=== PATIENT | female | born 1990 | race Caucasian/White ===

== ENCOUNTER 2019-12-31 06:09 | Day surgery (SDC) | payer MEDICAID, SELFPAY ==
[2019-12-31] VITALS (8 sets, daily range): BP systolic 113–157; BP diastolic 66–109; PULSE 86–100; RESP 16–26; TEMP 36.1–36.8; O2SAT 95–98; BMI 25.0
[2019-12-31] MEDS: Lactated Ringers 1,000 ML 100 ML IV (06:56)
[2019-12-31 07:03] LABS: Internal QC Validated? YES +Cl - CLEAR BKGD; Pregnancy, Urine Negative Negative
--- NOTE | 2019-12-31 07:25 | RAD_ITS ---
STUDY: X-RAY - LEFT ANKLE REASON FOR EXAM: Female, 29 years old. FX REPAIR TECHNIQUE: 2 view(s) of the ankle. COMPARISON: None. FINDINGS: Intraoperative imaging provided for ORIF of the bilateral malleolar fractures. RAD/Ankle 2 Views IMPRESSION: Intraoperative imaging provided for ORIF of the bilateral malleolar fractures. Electronically Signed: Ryder Rabago, at 10:28 EDT , Service support ,
[2019-12-31] MEDS: Cefazolin 2 GM in 0.9% Normal Saline 100 ML IV (07:35)
--- NOTE | 2019-12-31 10:18 | DCINST_ITS ---
Discharge Diet: No Restrictions Discharge Activity: May Not Drive, May Not Shower, Use Walker, Use Crutches Weight Bearing Status: No weight bearing Keep extremity elevated above heart level: Left Leg Additional Activity Instructions:: 1. Keep dressing to left leg clean, dry, intact. Do not get dressing wet. Do not remove dressing. If get dressing wet, call office for further instructions. 2. Ice around left knee 30 minutes every hour while awake until follow-up appointment. 3. Elevate left foot above level of heart as much as possible until follow-up appointment. 4. Do not place weight on left foot. Do not walk or stand on left foot. Use crutches for assistance. 5. Keep weightbearing and walking activities to a minimum. The more you walk in the more you are upright, the more pain you will feel. 6. Begin taking doxycycline (antibiotic) and aspirin tomorrow, January 01, 2020. Both of these medications are twice a day. 7. Begin taking Percocet today, December 31, 2019 as instructed. 8. You can supplement pain medication with Tylenol in between dosages of Percocet. You should not take more than 3000 mg of Tylenol in 1 day. Each pill of Percocet contains 325 mg of Tylenol. Call your doctor if your incision/area has: Sudden Increased Bleeding, Increased Pain/ Swelling Call your doctor if you observe: Fever of 101 or Higher, Inability to have a bowel movement, Shortness of breath, Chest pain, Increased palpitations (irregular heartbeat), Calf discomfort, Uncontrolled pain Cleanse incision/area with: Keep Dressing Clean & Dry Allergies/Adverse Reactions: Allergies No Known Allergies Allergy (Verified 12/29/19 11:35) Medications to take at Discharge MedroxyPROGESTERone [Depo-Provera] 150 mg IM .[id number] 12/29/19 Oxycodone HCl/Acetaminophen [Percocet 5-325 mg Tablet] 1 - 2 ea PO Q6H PRN 12/29/19 Primary Care Physician: Care Physician,No Primary [Primary Care Provider] - Test Results: Test results from this visit will be discussed in further detail at your follow- up appointment, if applicable. Please Follow Up With: Arya Campos DPM When: on 01/08/2020 as previously scheduled Proposed Discharge Date: 12/31/19
--- NOTE | 2019-12-31 10:22 | OP.PCM_ITS ---
Problem List (1) Closed trimalleolar fracture of left ankle Status: Acute Qualifiers: Encounter type: initial encounter Qualified Code(s): S82.852A - Displaced trimalleolar fracture of left lower leg, initial encounter for closed fracture Report of Operation Date of Procedure: 12/31/19 Pre-Operative Diagnosis: 1. Left ankle trimalleolar fracture, closed. 2. Left ankle joint dislocation Post-Operative Diagnosis: Same as preoperative Surgery/Procedure Performed:: 1. Open reduction with internal fixation of the left ankle trimalleolar fracture. 2. Left ankle joint reduction Description of Surgical Findings:: Consistent with diagnosis. Reduction of deformities achieved and held with internal fixation. Posterior malleolus fracture was minimal and did not articulate with more than 25% of the articular surface of the ankle joint, thus internal fixation was not needed. Furthermore, it was not dislocated. The hook and cotton test were performed, testing the syndesmosis, and the syndesmosis was deemed intact. residential solar sales consultant: Shagufta Hernandez Type of Anesthesia:: General/Regional - With a popliteal and saphenous block to the left lower extremity given preoperatively Special Medications: 2 g of Ancef given preoperatively Specimen's removed: None Drains: None Estimated Blood Loss (mL): 10 Description of Procedure: Anesthesia: Is general with a popliteal and saphenous block to the left lower extremity. Hemostasis: Pneumatic thigh tourniquet placed at the level of left thigh at 300 mmHg for 120 minutes. Estimated blood loss is 10 mL Materials: #1. Is a Ekaterina 4 hole distal lateral fibula plate. 2. Ekaterina Asnis 4.0 x 40 mm partially-threaded screw. 3. [place] 3.5 x 12 mm locking screw. 4. Ekaterina 3.5 x 14 mm locking screw. 5. Ekaterina 3.5 x 16 mm locking screw x2. 6. [place] 3.5 x 10 mm nonlocking screw. 7. Ekaterina 3.5 x 12 mm nonlocking screw x2. 8. Ekaterina 3.5 x 16 mm nonlocking screw. 9. Size 0 Vicryl. 10. Size 2-0 Vicryl. 11. Size 3-0 Vicryl. 12. Size 3-0 nylon Injectables: None Complications: None Condition: Stable Indications: Patient is a 29-year-old female who suffered a left ankle injury on December 15, 2019. Patient states that she was filling water in her dog's bowl, and slipped on the water. Patient felt immediate pain in her left ankle and was unable to bear weight. Patient presented to the emergency department for further evaluation, where she was diagnosed with a left ankle fracture. Patient was then placed in a posterior splint and was instructed to follow-up. Patient initially saw me in December 18, 2019. The dressing was removed, revealing significant edema and loss of skin lines. The multilayer compressive dressing was reapplied. After reviewing the x-rays, I saw a trimalleolar fracture and was suspicious of a posterior malleolus fracture. I discussed with the patient that, due to the injury that was present, I recommended surgical intervention. Patient was agreeable to this. I did discuss with the patient that, due to the swelling, I would like to wait a period of a least 2 weeks to make sure the swelling decreases. In the meantime, a CT scan was ordered for preoperative planning. This showed the posterior malleolus fracture that was nondisplaced and that did not articulate with 25% or more of the ankle joint surface. The CT scan also showed a comminuted fibular fracture. I subsequently saw the patient back in my office on December 24 for an edema check. Reduction in edema was noted. I did go over the CT scan with the patient as well. Preoperative blood work and testing was ordered for the patient as well. Once again, I discussed the surgical intervention, which would include an open reduction with internal fixation of the left ankle trimalleolar fracture. The risks, benefits, possible outcomes, possible complications of the procedure were discussed with the patient. These included but not limited to delayed or nonhealing wounds, delayed or nonhealing bone, DVT, infection, decreased function of limb, loss of limb, loss of life. All the patient's questions were answered to her satisfaction and all of her concerns were addressed. No guarantees were made as to the outcome of the procedure. Patient displayed verbal understanding to all written and oral instructions, and was agreeable to proceed with the procedure. Operative report: Before the patient was brought to the operating room, the risks, benefits, possible outcomes, possible complications of the procedure were discussed with the patient once again. These included but not limited to delayed or nonhealing wounds, delayed or nonhealing bone, DVT, infection, decreased function of limb, loss of limb, loss of life. All the patient's questions were answered to her satisfaction and all of her concerns were addressed. No guarantees were made as to the outcome of the procedure. Patient displayed verbal understanding to all aspects of the procedure, and consent was then signed by the patient. Before the patient was brought to the operating room, the anesthesiologist administered a popliteal block to the left lower extremity. Patient was then brought to the operating room and placed on the operating table in supine position. Anesthesia then to control the airway while general anesthesia was obtained. All pressure points were padded. Next, 10 mL of 0.5 to Marcaine plain was distributed in a proximal saphenous nerve block fashion in the area of the tibial tuberosity. At this time, a well-padded pneumatic thigh tourniquet was placed the level of the left thigh. The left foot, ankle, leg were then scrubbed, prepped, draped in the usual sterile manner. Attention was then directed to the lateral aspect of the fibula. At this time, radiograph evaluation was used to determine the distal tip of the lateral malleolus, level of the fracture, and the lateral aspect of the distal one third of the fibular shaft. These were then marked on the patient. Attention was then directed to the medial aspect of the medial malleolus. The distal tip of the medial malleolus was palpated and marked along with the level of the fracture. These were confirmed upon radiographic evaluation. At this time, the left foot, ankle, leg were then elevated and exsanguinated via Esmarch and inflation pneumatic thigh tourniquet was performed to 300 mmHg. Attention was then directed back to the lateral aspect of the fibula. At this time, #15 blade was used to perform a linear longitudinal incision starting at the distal tip of the lateral malleolus extending distally to the lateral aspect of the distal one third of the fibular shaft. This incision was deepened utilizing sharp and blunt dissection. Care was taken to retract all vital neural and vascular structures. All bleeders were cauterized and ligated as necessary. Next, a periosteal incision was made in line with the original skin incision. The periosteal and capsular structures were then reflected anteriorly and posteriorly, thus exposing the fractured fibula at the operative site. This time, the fibula was noted to be comminuted with multiple pieces. The fractures were then reduced and held via temporary fixation. Radiograph evaluation was then performed. The fibular fracture was noted to be reduced from preoperative assessment. The fibula was noted to be out to length at this time. Next, the [place] 3.5 x 16 mm nonlocking screw was placed in standard AO fixation as perpendicular to the main fracture line as possible. This was placed in a anterior proximal to posterior distal fashion. Of note during insertion of the screw was the adequate compression of the fracture fragments. Furthermore, no shifting of any of the fragments occurred during insertion of the screw. The temporary fixation was held in the pieces where the comminution was noted. At this time, the Ekaterina 4 hole fibular plate was placed over the lateral aspect of the fibula and held via temporary fixation. Positioning of this plate was confirmed upon radiographic evaluation. Once confirmed, this was held via a mixture of nonlocking and locking screws to the lateral aspect of the fibula. Of note during insertion of the screws was the adequate compression of the plate to the bone. Furthermore, no shifting of any of the fragments occurred during insertion of the screws. Once her screws were fully inserted, all temporary fixation was then removed. Radiographic evaluation was then performed. The fibula was noted to be out to length at this time. The plate along with the interfragmentary screw was noted to hold the fractures of the fibula in the corrected reduced position. At this time, live radiographic evaluation was used to assess the syndesmosis via the hook and cotton test. The syndesmosis was deemed intact with no evidence of widening noted. No evidence of instability was noted at the syndesmosis. Attention was then directed to the medial aspect of the left ankle joint near the medial malleolus. At this time, the K wire for the [place] 4.0 Asnis screw was inserted under live radiograph evaluation from the distal tip of the medial malleolus extending proximally into the medullary canal of the tibia. Multiple radiographic views were performed and the K wire was noted to be well contained within the tibia. At this time, a Ekaterina 4.0 x 40 mm Asnis screw was inserted into the tibia in standard fashion. Of note there insertion of the screw was adequate compression of the fracture fragments. Furthermore, no shifting any of the fragments occurred during insertion of the screw. Once the screw was fully inserted, all temporary fixation was then removed. Radiograph evaluation was then performed. The screw was noted to hold the medial malleolus in the correct the reduced position. It was determined this time the 1 screw would be used due to the non-displacement of the fracture of the medial malleolus that was noted upon CT scan. At this time, multiple radiographic views and live radiograph evaluation was used to assess the posterior malleolus fracture. Once again, it was deemed smaller than 25% of the articular surface of the ankle joint and was noted to be nondisplaced. It was determined this time that the posterior malleolar fracture did not need internal fixation. At this time, final radiographs were performed. The fibula was noted to be out to length and held in the corrected reduced position. The ankle joint mortise was noted to be intact. The medial malleolus fracture was noted to be reduced from preoperative assessment. The hook and cotton test were performed once again and the syndesmosis was deemed intact with no evidence of instability. The lateral surgical site was then irrigated copious amounts normal sterile saline. The periosteal capsular structures were reapproximated and coapted utilizing size 0 Vicryl. The subcutaneous tissue was reapproximated and coapted utilizing size 2-0 Vicryl and 3-0 Vicryl. The skin was reapproximated and coapted utilizing size 3-0 nylon in a simple interrupted horizontal mattress fashion. The subcutaneous tissue of the surgical site on the medial aspect of left ankle was reapproximated coapted utilizing size 3-0 Vicryl. The skin was reapproximated coapted utilizing 3-0 nylon in a simple interrupted horizontal mattress fashion. At this time, the pneumatic thigh tourniquet was then released and a prompt hyperemic response noted to the entirety of the left lower extremity. Each surgical site was then dressed with Betadine soaked gauze, and a dry sterile dressing consisting of 4 x 4 gauze, ABD pads, wrapped with Kerlix. The left foot and ankle were then wrapped with an Nathaniel bandage. Next, a stockinette was placed over the left lower extremity. Cast padding was wrapped from the metatarsal heads extending proximally to the level just distal to the tibial tuberosity. A posterior splint was fashioned to the left lower extremity and was adhered to the left lower extremity utilizing Nathaniel bandages. Neurovascular status was assessed at the end of the application and deemed intact to the left lower extremity. The patient tolerated the anesthesia of the procedure well and was transported to the PACU with vital signs stable and neurovascular status intact to left lower extremity. After period of postoperative monitoring, patient will be discharged home with written and oral instructions for wound care and follow-up. The marketing assistant retail division, the nurse practitioner, was utilized throughout the entire procedure. She helped with patient positioning, holding of limb, holding of retractors. She helped with exposure throughout. She helped with bandage application and cast application. Without the marketing assistant retail division, surgical time would have been increased and surgical outcome could have been less optimal. - Complications None - Admit VTE Documentation VTE Present on Admission: No VTE Mechan Device Prophylaxis: SCD's VTE Pharm Prophylaxis ordered?: Yes
--- NOTE | 2019-12-31 10:50 | RAD_ITS ---
STUDY: X-RAY - LEFT ANKLE REASON FOR EXAM: Female, 29 years old. POST OP TECHNIQUE: 3 view(s) of the ankle. COMPARISON: Comparison is made with prior imaging done earlier in the day. FINDINGS: The patient is status post open reduction internal fixation of the distal fibular fracture utilizing sideplate and screw fixation device. A metallic screw is seen transfixing the medial malleolus. There is good alignment. Normal tibiotalar articulation and ankle mortise. Normal visualized talus and calcaneus. The visualized subtalar, talonavicular, calcaneocuboid and tarsal articulations are normal. Postoperative soft tissue changes. RAD/Ankle min 3 Views IMPRESSION: Status post ORIF of the distal fibula and medial malleolar fractures. The alignment. Postoperative soft tissue changes. Electronically Signed: Ryder Rabago, at 12:46 EDT , Service support ,
[2019-12-31] MEDS: HYDROcodone Bitartrate/Apap 5/325 Tablet PO (12:17)
== END 2019-12-31 12:32 | disposition home or self-care (01) ==
LOC: SDC 06:11 → AC 06:23 → ACINP 10:39 → AC 10:42
PROVIDERS: Anesthesiology; Referring Provider Podiatrist Foot & Ankle Surgery; Visit Provider Podiatrist Foot & Ankle Surgery
DX: S82.852A Displaced trimalleolar fracture of left lower leg, initial encounter for closed fracture (principal); W01.0XXA Fall on same level from slipping, tripping and stumbling without subsequent striking against object, initial encounter; Y93.89 Activity, other specified; Y92.9 Unspecified place or not applicable; Z11.59 Encounter for screening for other viral diseases; G25.81 Restless legs syndrome; Z79.899 Other long term (current) drug therapy; Z79.82 Long term (current) use of aspirin; F17.210 Nicotine dependence, cigarettes, uncomplicated
CPT/HCPCS: 01480; 27822; 64445; 73600; 73610; 76000; 81025; 87635; C1713; G2023; J7120; J2405; U0003

== ENCOUNTER 2021-05-19 08:36 | Outpatient (RCR) | payer MEDICAID, SELFPAY ==
[2021-05-19 09:00] VITALS: TEMP 36.1
--- NOTE | 2021-05-19 12:30 | PCM.WC.HP ---
History of Present Illness Date of Service: 05/19/21 Chief Complaint: dog bite left calf History of Wound: [facility] for evaluation of a dog bite of the left calf. She has a medical history significant for a previous left ankle trimalleolar fracture (closed) with left ankle joint dislocation s/p ORIF (12/2019), tobacco use, and a history of alcohol and marijuana use. She is nondiabetic. Approximately 3-4 weeks ago, she was bit by her boyfriend's pit bull while trying to separate it from another dog. She presented to the emergency room for evaluation, and was given Augmentin and a tetanus shot, and loose sutures were placed. The patient believes 5 sutures were placed in the left calf. An x-ray of the left tibia and fibula was unremarkable. She followed up at [facility] physicians, and sutures were not removed due to concern for wound dehiscence. She has been cleansing her wound with soap and water in the shower, rinsing it with hydrogen peroxide, and covering it with a large Band-Aid. She reports some periwound erythema and tenderness. She denies any increased warmth or rash of the periwound area. She reports yellow drainage from the wound. The patient denies fever, chills, general malaise, or poor appetite. Prior to this incident, the patient was not established with a primary care provider. She has not had any recent blood work completed. [facility] Medical History Cellulitis of left lower leg Dog bite of calf Open bite, left lower leg, sequela Tobacco use Home Medications medroxyprogesterone 150 mg IM .[id number] 12/29/19 [History Last Taken Unknown] collagenase clostridium histo. [Santyl] 1 applic TOPICAL DAILY #30 g 05/19/21 [Rx Last Taken Unknown] sulfamethoxazole-trimethoprim [Bactrim DS] 1 tab PO Q12H #10 tab 05/19/21 [Rx Last Taken Unknown] Allergy/AdvReac Type Severity Reaction Status Date / Time No Known Allergies Allergy Verified 12/29/19 11:35 Social History Smoking Status: Current every day smoker ROS Constitutional Constitutional: Denies chills, fever(s) or night sweats Eyes Eyes: Denies change in vision or double vision ENT HEENT: Denies lip swelling or tongue swelling Cardiovascular Cardiovascular: Denies chest pain or palpitations Respiratory/Chest Respiratory/Chest: Denies cough, shortness of breath at rest, shortness of breath with exertion or wheezing Gastrointestinal Gastrointestinal: Denies diarrhea, nausea or vomiting Genitourinary Genitourinary: Denies dysuria or hematuria Musculoskeletal Musculoskeletal: Reports extremity pain; Denies abnormal gait, muscle weakness, numbness or tingling Integumentary Integumentary: Reports wounds; Denies rash Neurologic Neurologic: Denies abnormal gait, abnormal speech or focal weakness Endocrine Endocrinology: Denies cold intolerance, heat intolerance, polydipsia or polyuria Hematologic/Lymphatic Hematologic/Lymphatic: Denies easy bleeding or easy bruising Vital Signs Vital Signs Vital Signs: 05/19/21 09:00 Temperature 97.0 F L Temperature Source Temporal Blood Pressure Source Monitor Blood Pressure Position Sitting Blood Pressure Location Left Arm Physical Exam Const alert and healthy appearing General Appearance: cooperative, well kempt and anxious Orientation / Consciousness: awake HEENT Head and Scalp: normocephalic and atraumatic Eyes EOMs intact bilaterally Neck supple and no JVD Resp normal respiratory effort, normal air movement and no use of accessory muscles Auscultation: clear to auscultation bilaterally; Negative for crackles, rales, rhonchi or wheezes Cardio regular rate and regular rhythm Peripheral Pulses: dorsalis pedis pulses present left 2+ GI normal to inspection, nondistended, normoactive bowel sounds Extremity normal capillary refill, no joint enlargement and no pedal edema General Extremity: calf tenderness and edema left lower extremity (Calf) mild; Negative for clubbing or cyanosis Skin Wounds: wounds noted No malodorous Wound Narrative: Left calf wound with subcutaneous layer exposed. [address] in place. No tunneling, undermining, or probing to bone. There is moderate periwound erythema and tenderness. No periwound warmth. Large amount of slough and devitalized tissue present. No purulent or malodorous drainage. Neuro oriented x3, moves all extremities and no focal motor deficits Psych mental status grossly normal, cooperative and affect normal Debridement Note Debridement Note Wound debrided: Left calf Laterality: Left Type of Debridement: Excisional debridement Anesthesia Used: 5% Lidocaine Gel and Cetacaine Depth: in the subcutaneous layer Percentage of wound debrided: 100 Instrument Used: 3mm curette Tissue Removed: Slough and devitalized tissue Severity: Fat Layer Exposed Amount of bleeding with debridement: Mild Bleeding Controlled with: Pressure Patient tolerated procedure: Patient did not tolerate procedure well Post-Debridement Measurements and Additional Note: Post-Debridement Measurements/Treatment - Nurse 1 - General Ulcer Assessment Start: 05/19/21 09:00 Freq: Status: Active Protocol: HUDSON Activity Type Activity Date Activity User E-Sign Co-Sign Detail Recorded Client Recorded Date Recorded By Document 05/19/21 09:00 KEI [id number] 05/19/21 09:09 KR 05/19/21 09:00 WC - Today's Visit Information Type of service Initial Visit Arrival Mode Ambulatory Patient Identification Verified (Name & Yes ) Vital Signs Temperature (97.8 F-99.1 F) 97.0 F L Temperature Source Temporal Pulse Location Monitor Source Monitor Position Sitting Blood Pressure Location Left Arm History Since Last Visit- (Skip if this is Patient's initial visit) Have you changed medications since your No last visit? Any new allergies or adverse reactions No Had a fall/change in ADL's that may No increase risk of falls Signs or symptoms of abuse and/or No neglect since last visit Have you been in the hospital since your No last visit? Has dressing in place as prescribed No Has compression in place as prescribed N/A Has offloadiing in place as prescribed N/A Experienced any changes in pain level or No management Left Footwear Regular Shoe Right Footwear Regular Shoe Pain Scale: 0-10 Numeric Is Patient Pain Free? Yes - Nurse 1 - General Ulcer Measurement Start: 05/19/21 09:00 Freq: Status: Active Protocol: Activity Type Activity Date Activity User E-Sign Co-Sign Detail Recorded Client Recorded Date Recorded By Document 05/19/21 09:00 KEI [id number] 05/19/21 09:09 KR 05/19/21 09:00 Wound Center Nurse 1 #1 Left Calf -Current Size (cm) - Length 1 -Current Size (cm) - Width 0.6 -Current Size (cm) - Depth 0.4 -Total Square Cm 0.6 -Exudate Amt Small -Exudate Type Serosanguineous -Wound Margin Distinct, Outline Attached -Granulation Amt Medium (34-66%) -Granulation Quality Red -Necrosis Amt Medium (34-66%) -Necrotic Tissue Type Adherent Slough -Texture (Ann Marie-wound Skin Appearance) Assessed, Scarring -Moisture (Ann Marie-wound Skin Appearance) No Abnormality, Assessed -Color (Ann Marie-wound Skin Appearance) No Abnormality, Assessed -Temperature (Ann Marie-wound Skin No Abnormality Appearance) (Pt Warm) -Tenderness on Palpation (Ann Marie-wound No Skin Appearance) -Ulcer Cleansing Rinsed/ Irrigated with Saline -Foul Odor after Cleansing No -Anesthetic Used 5% Lidocaine Gel Left Calf (cm) 33.5 Left Ankle (cm) 22.5 WC - Nurse 3 - General Ulcer D/C NN Start: 05/19/21 09:00 Freq: Status: Active Protocol: Activity Type Activity Date Activity User E-Sign Co-Sign Detail Recorded Client Recorded Date Recorded By Document 05/19/21 09:57 ARNULFO [id number] 05/19/21 09:58 ARNULFO 05/19/21 09:57 Wound Care Nurse 3 #1 Left Calf -Ulcer Cleansing Rinsed/ Irrigated with Saline -Foul Odor after Cleansing No -Negative Pressure Wound Therapy N/A -Primary Dressing Applied Aquacel AG 4x4 -Primary Dressing Covered/Secured with Dry Gauze, Secured with Tape -Aquacel AG 4x4 1 WC - Visit Discharge Discharge Condition Stable Transportation Private Auto Medication Reconcilliation completed & Yes provided to patient/care provider Clinical Summary of Care Provided Yes Charges/Coding Visit Charges Office Visits / Consults: 63095 OV L4 New Procedures Integumentary [id number]: [id number] Kassandra subq tissue 20 sq cm/< Assessment/Plan Assessment/Plan (1) Dog bite of calf: CODE(S): S81.859A - Open bite, unspecified lower leg, initial encounter; W54.0XXA - Bitten by dog, initial encounter QUALIFIERS: Encounter type: sequela Laterality: left Qualified Code(s): S81.852S - Open bite, left lower leg, sequela; W54.0XXS - Bitten by dog, sequela (2) Open bite, left lower leg, sequela: CODE(S): S81.852S - Open bite, left lower leg, sequela (3) Tobacco use: CODE(S): Z72.0 - Tobacco use (4) Cellulitis of left lower leg: CODE(S): L03.116 - Cellulitis of left lower limb PLAN: 5 simple interrupted sutures removed from the left calf wound. Debridement performed today in clinic as annotated above. Patient is extremely anxious and very sensitive to debridement today. Aquacel Ag applied to the left calf wound. At home wound-care instructions: A prescription for Santyl ointment has been sent to the pharmacy. Apply Santyl and a nickel thick layer to the wound, and cover with gauze. Change dressing once daily or more frequently as needed due to contamination. Wash wounds daily with antibacterial soap and water, rinse and dry thoroughly before each dressing change. Discontinue hydrogen peroxide. Compression: Double Tubigrip's applied to the left lower extremity. Wear these daily. May remove these at bedtime. Compression should be reapplied prior to getting out of bed in the morning. Off-loading: The patient was instructed to avoid pressure and friction on the affected areas. Reposition every 2 hours at minimum. Avoid prolonged standing and/or dangling of legs. When seated, feet should be elevated at chest level. Frequent ambulation is encouraged. Diet: Patient encouraged to increase protein intake while taking caution to avoid high carbohydrate and/or sugar intake. Smoking: The risks of smoking and benefits of smoking cessation were discussed with the patient today. The patient is encouraged to quit smoking. If smoking cessation aids are desired, the patient should contact their primary care provider to discuss appropriate options. Labs/cultures/imaging: Cultures ordered and collected today. Patient was empirically started on Bactrim DS 1 tab every 12 hours x5 days. Antibiotics will be adjusted as needed based on culture results. Routine baseline lab work ordered. Vascular studies deferred for the time being. Follow-up: Return to clinic in 2 weeks for re-evaluation. Return sooner or report to the emergency room should symptoms worsen, or new symptoms arise.
== END 2021-05-30 23:59 ==
LOC: WC 08:36
PROVIDERS: Visit Provider Nurse Practitioner Family
DX: S81.852A Open bite, left lower leg, initial encounter (principal); W54.0XXA Bitten by dog, initial encounter; F17.200 Nicotine dependence, unspecified, uncomplicated; L03.116 Cellulitis of left lower limb
CPT/HCPCS: 11042; 87070; 87075; 87077; 87186; 87205; 99213; G0463

== ENCOUNTER 2024-04-21 13:57 | Emergency (ER) | payer MEDICAID, SELFPAY ==
[2024-04-21 13:58] VITALS: BP 122/84; PULSE 90; RESP 16; TEMP 35.9; O2SAT 99; BMI 24.5
--- NOTE | 2024-04-21 16:20 | ED.VIS.DENTA ---
HPI History of Present Illness Chief Complaint: Dental Informant: patient Narrative Narrative: Patient presents to the ED for lower gum/mouth pain. She started 2 days ago. It is in her bottom gums diffusely. She states she also has some pain going and underneath her jaw and into her throat/anterior neck. Is having hard time eating because of the pain but can still drink. Denies any fever. Has not taken Tylenol or Profen with no relief of her symptoms. Denies associated fever. [place] any rash or skin changes. Does not take any medications and denies any recent medications. Does intermittently use tobacco but is not currently. Notes that she does get pain when she clenches her jaw but denies any focal tooth pain. Does not currently see a dentist. States she had something like this once before but it self resolved and she never had it looked out. No other complaints or concerns reported at this time. Denies any sick contacts at home. [facility] Medical History Cellulitis of left lower leg Tobacco use Open bite, left lower leg, sequela Dog bite of calf Home Medications ?Medication ?Instructions ?Recorded ?Last Taken ?Type medroxyprogesterone 150 mg/mL 150 mg IM .[id number] 12/29/19 Unknown History intramuscular syringe collagenase clostridium histo. 250 1 applic topical DAILY #30 grams 05/19/21 Unknown Rx unit/gram topical ointment (Santyl) sulfamethoxazole 800 1 tab PO Q12H #10 tabs 05/19/21 Unknown Rx mg-trimethoprim 160 mg tablet (Bactrim DS) MAGIC MOUTH WASH (BMX) 180 mL 5 ml buccal TID PRN PRN gum pain 04/21/24 Unknown Rx suspension #180 mL amoxicillin 875 mg-potassium 875 mg PO Q12H #20 TABLETS 04/21/24 Unknown Rx clavulanate 125 mg tablet chlorhexidine gluconate 0.12 % 15 ml buccal BID #120 mL 04/21/24 Unknown Rx mouthwash ibuprofen 600 mg tablet 600 mg PO Q6H PRN PRN pain #20 04/21/24 Unknown Rx TABLETS Allergy/AdvReac Type Severity Reaction Status Date / Time No Known Allergies Allergy Verified 04/21/24 13:58 Social History Smoking Status: Current every day smoker tobacco type: cigarettes ROS ROS ED Constitutional Constitutional ED: Denies chills or fever(s) ENT ENT ED: Reports other Details: Lower gum pain ; Denies rhinorrhea or sore throat Cardiovascular Cardiovascular: Denies chest pain Respiratory/Chest Respiratory/Chest: Denies cough or dyspnea Gastrointestinal Gastrointestinal: Denies nausea or vomiting Integumentary Denies rash Hematologic/Lymphatic Hematologic/Lymphatic: Denies easy bleeding or easy bruising EXAM Physical Exam Const Vital Signs: 04/21/24 13:58 Temperature 96.6 F L Temperature Source Temporal Pulse Rate 90 Respiratory Rate 16 Blood Pressure 122/84 H Blood Pressure Mean 96 Pulse Ox 99 Oxygen Delivery Method Room Air Positive well nourished and well developed General Appearance ED: well developed HEENT HEENT Narrative: Normocephalic atraumatic. Normal TMs bilaterally. Normal external ears. Some scattered dental decay and caries present. Patient does have some mild swelling and irritation of the gingiva of the lower jaw that is tender to palpation. Do not appreciate any lesions on the mucosal or buccal surfaces. No signs of dental abscess on exam. No focal tenderness of the teeth. Normal oropharynx. Eyes PERRL and EOMs intact bilaterally Neck supple Neck Narrative: Anterior cervical chain lymphadenopathy right greater than left present. Mildly tender. Normal phonation. General: normal visual inspection; Negative for submandibular swelling Chest Wall inspection of chest normal and palpation of chest normal Resp normal respiratory effort and clear to auscultation bilaterally Resp Narrative: No stridor Cardio regular rate and regular rhythm Neuro oriented x3 Sensorium / Orientation: alert Motor Exam: Negative for general weakness Psych mental status grossly normal Skin no rashes or lesions noted and no wounds MDM MDM MDM Narrative Medical decision making narrative: Patient is evaluated for 2 days of worsening lower abdominal pain. Differential includes aphthous ulcer, gingivitis, mucositis and viral illness. I do not see an obvious dental abscess. I do not see any lesions in the mouth. She does not have any abnormal bruising or other rash concerning for more systemic syndrome such as Blandon-Oscar syndrome/TENS. She denies any recent medications. Will give her lidocaine in the ER as well as Motrin. Will prescribe Magic mouthwash and [id number] course of antibiotics in case this is a developing bacterial infection. Patient agreeable this plan of care. Encouraged follow-up with a dentist and given her dental referral sheet. Counseled importance of tobacco cessation. She verbalized agreement to this plan. Discharged home in stable condition. Discharge Plan Triage Chief Complaint: Dental ED Provider: Contsanza Larson Dx/Rx/DC Orders Clinical Impression: Mucositis oral Instructions: Understanding Gingivitis, ED Dental Pain Prescriptions: New MAGIC MOUTH WASH (BMX) 180 mL suspension 5 ml buccal TID PRN PRN (Reason: gum pain ) Qty: 180 0RF Rx Instructions: diphenhydramine 12.5 mg/5 mL oral liquid 60 mL; aluminum-mag hydroxide-simethicone 400 mg-400 mg-40 mg/5 mL oral susp 60 mL; Lidocaine Viscous 2 % mucosal solution 60 mL; Per 180 mL amoxicillin-pot clavulanate 875-125 mg tablet 875 mg PO Q12H Qty: 20 0RF ibuprofen 600 mg tablet 600 mg PO Q6H PRN PRN (Reason: pain) Qty: 20 0RF chlorhexidine gluconate 0.12 % mouthwash 15 ml buccal BID Qty: 120 0RF No Action medroxyprogesterone 150 MG/ML syringe 150 mg IM .[id number] Santyl 250 unit/gram ointment 1 applic topical DAILY Qty: 30 2RF Rx Instructions: apply a nickel-thick layer to wound sulfamethoxazole-trimethoprim [Bactrim DS] 800-160 mg tablet 1 tab PO Q12H Qty: 10 0RF Primary Care Provider: Care Physician,No Primary Referrals: Care Physician,No Primary [Primary Care Provider] - Activity Restrictions/Additional Instructions: Please return to care progression worsening your symptoms. If you do not have improvement of your pain in the next 48 hours with the Magic mouth wash, ibuprofen and chlorhexidine please start taking antibiotics. If you improve with the other medication do not need to take the antibiotics. Please follow-up with a dentist. Continue to abstain from any tobacco use. Print Language: Sami Disposition Disposition: Home, Self Care
[2024-04-21] MEDS: Lidocaine 2% Viscous15 ML UDC 5 ML PO (16:22)
[2024-04-21] MEDS: Ibuprofen 600 MG Tablet PO (16:22)
--- NOTE | 2024-04-21 16:36 | ED.RN ---
pain improving with lidocaine
--- OUTSIDE RECORDS SUMMARY | 2024-04-21 17:14 | XMS RPT_ITS | CCD ---
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 Name Role Phone PHYSICIAN, NONE Primary Care Physician Unavailab Navarrete PT, Joann Unavailable Unavailable YENNY ROLON, DR MCGEE Attending Unavailab lang PHYSICIAN, NONE Primary Care Unavailable Idris Russell MD Primary Care Provider SILVIO CANADA Attending Unavailable IDRIS RUSSELL Primary Care Unavailable Allergies Allergy Classification Reported Allergen(s) Allergy Type Date of Onset Reaction(s) Facility (2 sources) Seasonal allergy; Translations: [SEASONAL ALLERGIES] Allergy to substance 4 Other: See Comments [facility] Medications Current Medications Medication Drug Class(es) Dates Sig (Normalized) Sig (Original) acetaminophen 500 mg oral tablet (2 sources) Start: 04-28-2021 acetaminophen 500 mg oral tablet Dose : 1,000 mg = 2 tab(s), Oral, TID, PRN pain or fever, 0 Refill(s) Start Date: 04/28/21 Status: Ordered Start: 08-11-2018 take 2 tablets by mo [facility] every six hours as needed acetaminophen (TYLENOL EXTRA STRENGTH) 500 mg tablet Take 2 tablets by mouth every 6 hours as needed for Pain. FOR PAIN. 60 tablet 1 08/11/2018 Active Comment on above: Take 2 tablets by mo [facility] every 6 hours as needed for Pain. FOR PAIN. amoxicillin 500 mg oral capsule (1 source) Penicillin-class Antibacterial Start: 02-21-2023 End: 03-03-2023 amoxicillin 500 mg oral capsule Dose : 500 mg = 1 cap(s), PO, TID, X 10 day(s), # 30 cap(s), 0 Refill(s), 03/03/23 10:26:00 AM EDT Start Date: 02/21/23 Stop Date: 03/03/23 Status: Ordered predniSONE 50 mg oral tablet (2 sources) Start: 02-21-2023 End: 02-28-2023 predniSONE 50 mg oral tablet Dose : 50 mg = 1 tab(s), PO, Daily, X 7 day(s), # 7 tab(s), 0 Refill(s), 02/28/23 10:26:00 AM EDT Start Date: 02/21/23 Stop Date: 02/28/23 Status: Ordered Start: 01-08-2022 End: 01-13-2022 predniSONE 20 mg oral tablet Dose : 40 mg = 2 tab(s), Oral, Daily, # 10 tab(s), 0 Refill(s), Exudative pharyngitis Start Date: 01/08/22 Stop Date: 01/13/22 Status: Ordered traMADol hydrochloride 50 mg oral tablet (1 source) Opioid Agonist Start: 02-21-2023 End: 02-24-2023 Ultram 50 mg oral tablet Dose : 50 mg = 1 tab(s), Oral, q12hr, X 3 day(s), # 6 tab(s), 0 Refill(s), 02/24/23 10:26:00 AM EDT, Pharyngitis, 56.8 Start Date: 02/21/23 Stop Date: 02/24/23 Status: Ordered Completed/Discontinued Medications Medication Drug Class(es) Dates Sig (Normalized) Sig (Original) acetaminophen 325 mg / HYDROcodone bitartrate 5 mg oral tablet (1 source) Opioid Agonist Start: 01-09-20 End: 01-12-20 take 1 tablet by mouth every six hours as needed for pain [place] 325- 5 mg oral tablet Dose = 1 tab(s), Oral, q6h, PRN as needed for pain, # 12 tab(s), 0 Refill(s), Exudative pharyngitis, 59 Start Date: 01/08/22 Stop Date: 01/11/22 Status: Ordered ibuprofen 600 mg oral tablet (1 source) Nonsteroidal Anti-inflammatory Drug Start: 08-07-19 take 1 tablet by mouth every six hours as needed ibuprofen (MOTRIN) 600 mg tablet Take 1 tablet by mouth every 6 hours as needed. FOR PAIN. 60 tablet 1 08/07/2018 Active Comment on above: Take 1 tablet by connie th every 6 hours as needed. FOR PAIN. 1 ml medroxyPROGESTERone acetate 150 mg/ml injection (1 source) Progestin Start: 10-04-19 medroxyPROGESTERone (DEPO-PROVERA) 150 mg/mL injection Inject 1 mL intramuscularly every 12 weeks. 1 mL 4 10/03/2020 Active Comment on above: Inject 1 mL intramus cularly every 12 weeks. medroxyPROGESTERone 150 mg/mL intramuscular suspension (1 source) Start: 04-25-20 inject 1 mL by intramuscular injection every three months medroxyPROGESTERone 150 mg/mL intramuscular suspension Dose : 150 mg = 1 mL, Intramuscular, q3mo, # 1 mL, 0 Refill(s) Start Date: 04/25/19 Status: Ordered Problems Active Problems Problem Classification Problem Date Documented Da te Episodic/Chronic Abdominal pain (4 sources) Abdominal pain; Translations: [Pain in female pelvis] Onset: 08-11-2015 09-20-2013 Episodic Anxiety disorders (1 source) Anxiety neurosis ; Translations: [Generalized anxiety disorder] Onset: 07-29-2015 07-29-2015 Chronic Contraceptive and procreative management (2 sources) Patient encounter status; Translations: [Encounter for other general counseling and advice on contraception] Onset: 10-15-2023 10-15-2023 Episodic Mood disorders (1 source) Depressive disorder; Translations: [Depression] Onset: 07-29-2015 06-26-2021 Chronic Other upper respiratory infections (2 sources) Acute pharyngitis; Translations: [Acute pharyngitis, unspecified] Onset: 02-21-2023 Episodic Ovarian cyst (1 source) Cyst of ovary 12-22-2013 Episodic Past or Other Problems Problem Classification Problem Date Documented Da te Episodic/Chronic Residual codes; unclassified (1 source) Tobacco use and exposure - finding; Translations: [Tobacco use] Onset: 07-29-2015 07-29-2015 Episodic Results Test Name Value Interpretation Reference Range Facility CNOVon 10-15-2023 CNOV Office Visit (OBGYWM ) VIRGILIO FOOTE ([id number]) 1990 F Date Time Provider Department 10/15/23 2:45 PM SILVIO CANADAWEveline During your visit today, we recorded the following information about you: Blood pressure Weight Last Period 110/64 55.3 kg 09/30/23 Silvio Canada APRN.CNM 10/15/2023 3:47 PM Signed CONTRACEPTION Virgilio Foote is a 32 year old who presents today for contraception. LMP 09/30/23 HPI: Dysmenorrhea Yes, dysmenorrhea. Pain starts the day before and lasts during menses. Will take 1 Ibuprofen and 2 tylenol and this helps suppress it some. Pain throughout the month. Pain with intercourse. Right teratoma with oophorectomy 12 years ago. Heavy menses No Irregular menses No SUBJECTIVE Sexually active: Yes, single current partner x 2 months Smoking Yes vaping with nicotine Last PAP 08/13/2018 Method of control: Depo Provera satisfactory, 2020 last injection Methods tried previously: oral contraceptives Patient currently interested in: Depo Provera Interested in in the next 3 years? No Date of last STD testing? unknown Relevant Past Medical History: Smoker OB History T3 L3 SAB1 IAB0 Ectopic0 Multiple0 Live Births0 PAST MEDICAL HISTORY Diagnosis Date Abdominal pain 07/01/2005 chronic Anxiety neurosis 07/29/2015 Chronic pelvic pain in female 08/11/2015 Closed fracture of left ankle Depression 07/29/[facility] Teratoma of right ovary 07/01/2011 [facility], per patient report Tobacco use 07/29/2015 PAST SURGICAL HISTORY Procedure Laterality Date ANKLE SURGERY HX Left DELIVERY ONLY 07/01/2006 , low transverse DELIVERY ONLY 07/01/2007 , low transverse DELIVERY ONLY 07/01/2009 , low transverse COLONOSCOP W/ OR W/O BRSH SPEC 09/07/2015 Colonoscopy (MAC) PAST SURGICAL HISTORY OF 07/01/2011 Right oopherectomy and appendix FAMILY HISTORY Problem Relation Age of Onset Seizures Mother None Father Breast Cancer Maternal Grandmother Ischemic Heart Disease Maternal Grandmother Diabetes Maternal Grandmother Breast Cancer Maternal cousin SOCIAL HISTORY Social History Tobacco Use Smoking status: Every Day Packs/day: 0.50 Years: 8.00 Additional pack years: 0.00 Total pack years: 4.00 Types: Cigarettes Smokeless tobacco: Never Substance Use Topics Alcohol use: No Drug use: No PAST SURGICAL HISTORY Procedure Laterality Date ANKLE SURGERY HX Left DELIVERY ONLY 07/01/2006 , low transverse DELIVERY ONLY 07/01/2007 , low transverse DELIVERY ONLY 07/01/2009 , low transverse COLONOSCOP W/ OR W/O BRSH SPEC 09/07/2015 Colonoscopy ([facility] [place]) PAST SURGICAL HISTORY OF 07/01/2011 Right oopherectomy and appendix Current Outpatient Medications Medication Sig medroxyPROGESTERone (DEPO-PROVERA) 150 mg/mL injection Inject 1 mL intramuscularly every 12 weeks. (Patient not taking: Reported on 10/15/2023) acetaminophen (TYLENOL EXTRA STRENGTH) 500 mg tablet Take 2 tablets by mouth every 6 hours as needed for Pain. FOR PAIN. (Patient not taking: Reported on 08/10/2019) ibuprofen (MOTRIN) 600 mg tablet Take 1 tablet by mouth every 6 hours as needed. FOR PAIN. (Patient not taking: Reported on 08/10/2019) No current facility-administered medications for this visit. Allergies As of Date: 10/15/2023 Allergen Noted Reaction SEASONAL ALLERGIES 11/16/2013 Other: See Comments Fully Assessed 10/15/2023 OBJECTIVE: General Appearance: Well appearing, alert, in no acute distress, well-hydrated, well nourished. Skin: Color normal, No edema Neck: Supple, no adenopathy; thyroid symmetric, normal size, no bruits ASSESSMENT/PLAN: 1. Pelvic pain in female - ICD9: 625.9, ICD10: R10.2 (primary diagnosis) - US FEMALE PELVIS TRANSVAG - Was scheduled for annual exam today but declined at this time due to daughter being present. Reviewed recommendation for US and vaginal testing prior to starting control due to her pain. She is agreeable and will return for visit. 2. control counseling - ICD9: V25.09, ICD10: Z30.09 -Would like Depo, will start after exam and results. Silvio Canada APRN.YAJAIRAM Allergies As of Date: 10/15/2023 Noted Allergy Reaction SEASONAL ALLERGIES 11/16/2013 14 - Other: See Comments Comments: Sneezing, itching eyes Date Reviewed: 10/15/2023 Reviewed by: Wander Grayson MA - Fully Assessed Primary Visit Diagnosis:Pelvic pain in female [R10.2] Other Visit Diagnosis: control counseling [Z30.09] Order(s): FEMALE PELVIS TRANSVAG [[id number]] Order #: [id number] FUTURE Prescriptions as of 10/15/2023 - medroxyPROGESTERone (DEPO-PROVERA) 150 mg/mL injection Inject 1 mL intramuscularly every 12 weeks. - acetaminophen (TYLE (more content not included)... Normal [facility] LABORATORYOrdered By: Twin Huerta on 02-21-2023 S. pyogenes DNA LATANYA+probe Ql (Throat) Negative (02/21/23 9:51 AM) Invalid Interpretation Code Negative AO Auto Urine SS S. pyogenes DNA LATANYA+probe Ql (Throat) Negative for Streptococcus pyogenes by PCR. Negative test results do not rule out other possible infections besides those caused by Group A Streptococcus. False Negatives may be obtained in the presence of NYQUIL (0.5% V/V)The Jacoby Group A Strep Assay is a real-time polymerase chain reaction (PCR) based qualitative in vitro diagnostic test for the direct detection of Streptococcus pyogenes (Group A Beta hemolytic Streptococcus) in throat swab specimens from patients with signs and symptoms of pharyngitis.The Jacoby Group A Strep Assay can be used as an aid in the diagnosis of Group A Streptococcal pharyngitis. The assay is not intended to monitor treatment for Group A Streptococcus infections. Invalid Interpretation Code AO Auto Urine SS STREPAon 02-21-2023 Group A Strep PCR Negative Normal Negative [facility] ([place]) Comment on above: Performed By: #### S BARNEY #### [facility] [address] [place], [place] [address] Group A Strep PCR Int Normal [facility] ([place]) Comment on above: Result Comment: Nega tive for Streptococcus pyogenes by PCR. Negative test results do not rule out other possible infections besides those caused by Group A Streptococcus. False Negatives may be obtained in the presence of NYQUIL (0.5% V/V) The Jacoby Group A Strep Assay is a real-time polymerase chain reaction (PCR) based qualitative in vitro diagnostic test for the direct detection of Streptococcus pyogenes (Group A Beta hemolytic Streptococcus) in throat swab specimens from patients with signs and symptoms of pharyngitis. The Jacoby Group A Strep Assay can be used as an aid in the diagnosis of Group A Streptococcal pharyngitis. The assay is not intended to monitor treatment for Group A Streptococcus infections. See Interp Performed By: #### S [facility] #### [facility] [address] [place] [address] Vital Signs Date Time Vital Sign Value Performing Clinician Facility 10-15-2023 14:01-0400 Body weight 55.34 kg Silvio Canada APRN.CNEveline Work Phone: [facility] 10-15-2023 14:01-0400 Diastolic blood pressure 64 mm[Hg] Silvio Canada APRN.CNM Work Phone: [facility] 10-15-2023 14:01-0400 Systolic blood pressure 110 mm[Hg] Silvio Canada APRN.CNM Work Phone: [facility] 02-21-2023 09:29-[address] ARELY RAMON MD [facility] 02-21-2023 09:29-[address] ARELY RAMON MD [facility] 02-21-2023 09:29-0400 Body temperature 98.78 [degF] DR ARELY RAMON MD [facility] 02-21-2023 09:29-0400 Body weight 56.[address] ARELY RAMON MD [facility] 02-21-2023 09:29-0400 Diastolic Blood Pressure Non-Invasive [address] ARELY RAMON MD [facility] 02-21-2023 09:29-0400 Heart rate 104 /min DR ARELY RAMON MD [facility] 02-21-2023 09:29-0400 Respiratory rate 18 /min DR ARELY RAMON MD [facility] 02-21-2023 09:29-0400 Systolic Blood Pressure Non-Invasive [address] ARELY RAMON MD [facility] Encounters Encounter Date Encounter Type Care Provider Facility Start: 10-15-2023 End: 10-16-2023 ambulatory SILVIO CANADA Facility:[facility] Start: 10-15-2023 End: 10-15-2023 Patient encounter procedure Silvio Canada APRN.CNM Work Phone: OB/Gynecology Comment on above: Pelvic pain in femal e (Primary Dx); control counseling Start: 02-21-2023 End: 02-21-2023 Emergency department patient visit DR ARELY RAMON MD Facility: Start: 02-16-2023 End: 02-21-2023 Emergency department patient visit DR ARELY RAMON MD [facility] Procedures Date Procedure Procedure Detail Performing Clinician Appendectomy DR ARELY GROVES MD Ovary absent (finding) DR SHAUNA RAMON MD Plan of Treatment Date Care Activity Detail Author Start: 03-01-2024 Influenza vaccination Influenz a Vaccine (Season Ended) [facility] Start: 08-07-2023 Screening for malign ant neoplasm of cervix Pap Testing [facility] Start: 03-01-2023 Covid-19 Vaccine ( season) Covid-19 Vaccine ( season) [facility] Start: 11-25-2019 Screening for malign ant neoplasm of cervix HPV Testing [facility] Start: 2008 Hepatitis B Vaccine (1 of 3 - 19+ 3-dose series) Hepatitis B Vaccine (1 of 3 - 19+ 3-dose series) [facility] Start: 2008 Urine microalbumin profile DTaP,Tdap,Td Vaccine (4 - Tdap) [facility] Start: 11-25-2007 Hepatitis C screening Hepatitis C Sc reening [facility] Start: 11-25-2007 HIV screening HIV Screening [facility] Start: 11-25-1995 Pneumococcal vaccination Pneumococcal Vaccine (1 of 2 - PCV) [facility] End: 11-13-2024 US Pelvis transvaginal US FEMALE PELVIS TRANSVAG Radiology Routine Pelvic pain in female 1 Occurrences starting 10/15/2023 until 11/13/2024 [facility] Work Phone: Comment on above: 1 Occurrences starti ng 10/15/2023 until 11/13/2024 Immunizations Immunization Date Immunization Notes Care Provider Americo carter 02-18-1997 measles, mumps and rubella virus vaccine Silvio Canada APRN.CNM Work Phone: [facility] 02-18-1997 tetanus and diphther ia toxoids, adsorbed, preservative free, for adult use (2 Lf of tetanus toxoid and 2 Lf of diphtheria toxoid) Silvio Canada APRN.CNM Work Phone: [facility] 04-06-1996 trivalent poliovirus vaccine, live, oral Silvio Canada APRN.CNM Work Phone: [facility] 11-21-1993 haemophilus influenz ae type b vaccine, PRP-D conjugate Silvio Canada APRN.CNM Work Phone: [facility] 07-31-1993 measles, mumps and rubella virus vaccine Silvio Canada APRN.CNM Work Phone: [facility] 07-31-1993 tetanus and diphther ia toxoids, adsorbed, preservative free, for adult use (2 Lf of tetanus toxoid and 2 Lf of diphtheria toxoid) Silvio Canada APRN.CNM Work Phone: [facility] 07-31-1993 trivalent poliovirus vaccine, live, oral Silvio Canada CRANE FOLLOWER.CNM Work Phone: [facility] 06-04-1990 tetanus and diphther ia toxoids, adsorbed, preservative free, for adult use (2 Lf of tetanus toxoid and 2 Lf of diphtheria toxoid) Silvio Canada CRANE FOLLOWER.CNM Work Phone: [facility] 03-26-1990 diphtheria, tetanus toxoids and pertussis vaccine Silviojean paul Canada CRANE FOLLOWER.CNM Work Phone: [facility] 03-26-1990 trivalent poliovirus vaccine, live, oral Silvionilsa Canada CRANE FOLLOWER.CNM Work Phone: [facility] 01-23-1990 diphtheria, tetanus toxoids and pertussis vaccine Silviojean paul Canada CRANE FOLLOWER.CNM Work Phone: [facility] 01-23-1990 trivalent poliovirus vaccine, live, oral Silviojean paul Canada CRANE FOLLOWER.CNM Work Phone: [facility] Payers Date Payer Category Payer Medicaid UHC MEDICAID [employer] [place] [id number] 2022-Present [phone] [address] [place] [address] Medicaid [id number] 2022 Private Health Insurance [id number] 1990 Unknown [id number] Social History Date Type Detail Facility Start: 03-05-2019 Tobacco smoking status Light t obacco smoker (finding) [facility] Sex Assigned At Sex [facility] Start: 10-15-2023 Tobacco smoking stat us FLIS Smokes tobacco daily [facility] History of tobacco use Cigarette Smoker C [facility] Start: 10-15-2023 Cigarettes smoked cu rrent (pack per day) - Reported 0.5 [facility] Start: 10-15-2023 Tobacco use and exposure Smoke less tobacco non-user [facility] Start: 10-15-2023 Alcohol intake 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 non-dr 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 mill 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 of alcohol (finding) [facility] Start: 10-15-2023 Tobacco use panel [facility] National Score (1-10 0), lower number is lower risk 64 [facility] Start: 1990 Sex Assigned At Not on file C [facility] Functional Status Date Assessment Result Facility 02-21-2023 Functional Status Independent [place] [facility] mendieta [facility] 02-21-2023 Functional Status ID band on, Call device within reach, Bed in low position, Wheels locked, Upper/Half-Length side-rails up [facility] Mental Status Date Assessment Result Facility 02-21-2023 Mental Status Orientation Oriented x 4 [facility] 02-21-2023 Mental Status [facility] Progress note 10-15-2023 Note Date & Type Note Facility 10-15-2023 Note HNO ID: [id number] Author: SILVIO CANADA APRN.CNM Service: ? Author Type: Construction Framer Type: Progress Notes Filed: 10/15/2023 15:47 Note Text: CONTRACEPTION Virgilio Foote is a 32 year old who presents today for contraception. LMP 09/30/23 HPI: Dysmenorrhea Yes, dysmenorrhea. Pain starts the day before and lasts during menses. Will take 1 Ibuprofen and 2 tylenol and this helps suppress it some. Pain throughout the month. Pain with intercourse. Right teratoma with oophorectomy 12 years ago. Heavy menses No Irregular menses No SUBJECTIVE Sexually active: Yes, single current partner x 2 months Smoking Yes vaping with nicotine Last PAP 08/13/2018 Method of control: Depo Provera satisfactory, 2020 last injection Methods tried previously: oral contraceptives Patient currently interested in: Depo Provera Interested in in the next 3 years? No Date of last STD testing? unknown Relevant Past Medical History: Smoker OB History T3 L3 SAB1 IAB0 Ectopic0 Multiple0 Live Births0 PAST MEDICAL HISTORY Diagnosis Date Abdominal pain 07/01/2005 chronic Anxiety neurosis 07/29/2015 Chronic pelvic pain in female 08/11/2015 Closed fracture of left ankle Depression 07/29/2015 [facility] Teratoma of right ovary 07/01/2011 [facility], per patient report Tobacco use 07/29/2015 PAST SURGICAL HISTORY Procedure Laterality Date ANKLE SURGERY HX Left DELIVERY ONLY 07/01/2006 , low transverse DELIVERY ONLY 07/01/2007 , low transverse DELIVERY ONLY 07/01/2009 , low transverse COLONOSCOP W/ OR W/O BRSH SPEC 09/07/2015 Colonoscopy (MAC) PAST SURGICAL HISTORY OF 07/01/2011 Right oopherectomy and appendix FAMILY HISTORY Problem Relation Age of Onset Seizures Mother None Father Breast Cancer Maternal Grandmother Ischemic Heart Disease Maternal Grandmother Diabetes Maternal Grandmother Breast Cancer Maternal cousin SOCIAL HISTORY Social History Tobacco Use Smoking status: Every Day Packs/day: 0.50 Years: 8.00 Additional pack years: 0.00 Total pack years: 4.00 Types: Cigarettes Smokeless tobacco: Never Substance Use Topics Alcohol use: No Drug use: No PAST SURGICAL HISTORY Procedure Laterality Date ANKLE SURGERY HX Left DELIVERY ONLY 07/01/2006 , low transverse DELIVERY ONLY 07/01/2007 , low transverse DELIVERY ONLY 07/01/2009 , low transverse COLONOSCOP W/ OR W/O BRSH SPEC 09/07/2015 Colonoscopy (MAC) PAST SURGICAL HISTORY OF 07/01/2011 Right oopherectomy and appendix Current Outpatient Medications Medication Sig medroxyPROGESTERone (DEPO-PROVERA) 150 mg/mL injection Inject 1 mL intramuscularly every 12 weeks. (Patient not taking: Reported on 10/15/2023) acetaminophen (TYLENOL EXTRA STRENGTH) 500 mg tablet Take 2 tablets by mouth every 6 hours as needed for Pain. FOR PAIN. (Patient not taking: Reported on 08/10/2019) ibuprofen (MOTRIN) 600 mg tablet Take 1 tablet by mouth every 6 hours as needed. FOR PAIN. (Patient not taking: Reported on 08/10/2019) No current facility-administered medications for this visit. Allergies As of Date: 10/15/2023 Allergen Noted Reaction SEASONAL ALLERGIES 11/16/2013 Other: See Comments Fully Assessed 10/15/2023 OBJECTIVE: General Appearance: Well appearing, alert, in no acute distress, well-hydrated, well nourished. Skin: Color normal, No edema Neck: Supple, no adenopathy; thyroid symmetric, normal size, no bruits ASSESSMENT/PLAN: 1. Pelvic pain in female - ICD9: 625.9, ICD10: R10.2 (primary diagnosis) - US FEMALE PELVIS TRANSVAG - Was scheduled for annual exam today but declined at this time due to daughter being present. Reviewed recommendation for US and vaginal testing prior to starting control due to her pain. She is agreeable and will return for visit. 2. control counseling - ICD9: V25.09, ICD10: Z30.09 -Would like Depo, will start after exam and results. Silvio Canada APRN.CNM [facility] History of Present illness Narrative 10-15-2023 Silvio Canada APRN.CNM - 10/15/2023 2:00 PM EDT Note Date & Type Note Facility 10-15-2023 History of Presen t illness Narrative CONTRACEPTION Virgilio Foote is a 32 year old who presents today for contraception. LMP 09/30/23 HPI: Dysmenorrhea Yes, dysmenorrhea. Pain starts the day before and lasts during menses. Will take 1 Ibuprofen and 2 tylenol and this helps suppress it some. Pain throughout the month. Pain with intercourse. Right teratoma with oophorectomy 12 years ago. Heavy menses No Irregular menses No SUBJECTIVE Sexually active: Yes, single current partner x 2 months Smoking Yes vaping with nicotine Last PAP 08/13/2018 Method of control: Depo Provera satisfactory, 2020 last injection Methods tried previously: oral contraceptives Patient currently interested in: Depo Provera Interested in in the next 3 years? No Date of last STD testing? unknown Relevant Past Medical History: Smoker OB History T3 L3 SAB1 IAB0 Ectopic0 Multiple0 Live Births0 PAST MEDICAL HISTORY Diagnosis Date Abdominal pain 07/01/2005 chronic Anxiety neurosis 07/29/2015 Chronic pelvic pain in female 08/11/2015 Closed fracture of left ankle Depression 07/29/2015 [facility] Teratoma of right ovary 07/01/2011 [facility], per patient report Tobacco use 07/29/2015 PAST SURGICAL HISTORY Procedure Laterality Date ANKLE SURGERY HX Left DELIVERY ONLY 07/01/2006 , low transverse DELIVERY ONLY 07/01/2007 , low transverse DELIVERY ONLY 07/01/2009 , low transverse COLONOSCOP W/ OR W/O [facility] SPEC 09/07/2015 Colonoscopy (MAC) PAST SURGICAL HISTORY OF 07/01/2011 Right oopherectomy and appendix FAMILY HISTORY Problem Relation Age of Onset Seizures Mother None Father Breast Cancer Maternal Grandmother Ischemic Heart Disease Maternal Grandmother Diabetes Maternal Grandmother Breast Cancer Maternal cousin SOCIAL HISTORY Social History Tobacco Use Smoking status: Every Day Packs/day: 0.50 Years: 8.00 Additional pack years: 0.00 Total pack years: 4.00 Types: Cigarettes Smokeless tobacco: Never Substance Use Topics Alcohol use: No Drug use: No PAST SURGICAL HISTORY Procedure Laterality Date ANKLE SURGERY HX Left DELIVERY ONLY 07/01/2006 , low transverse DELIVERY ONLY 07/01/2007 , low transverse DELIVERY ONLY 07/01/2009 , low transverse COLONOSCOP W/ OR W/O [facility] SPEC 09/07/2015 Colonoscopy (MAC) PAST SURGICAL HISTORY OF 07/01/2011 Right oopherectomy and appendix Current Outpatient Medications Medication Sig medroxyPROGESTERone (DEPO-PROVERA) 150 mg/mL injection Inject 1 mL intramuscularly every 12 weeks. (Patient not taking: Reported on 10/15/2023) acetaminophen (TYLENOL EXTRA STRENGTH) 500 mg tablet Take 2 tablets by mouth every 6 hours as needed for Pain. FOR PAIN. (Patient not taking: Reported on 08/10/2019) ibuprofen (MOTRIN) 600 mg tablet Take 1 tablet by mouth every 6 hours as needed. FOR PAIN. (Patient not taking: Reported on 08/10/2019) No current facility-administered medications for this visit. Allergies As of Date: 10/15/2023 Allergen Noted Reaction SEASONAL ALLERGIES 11/16/2013 Other: See Comments Fully Assessed 10/15/2023 OBJECTIVE: General Appearance: Well appearing, alert, in no acute distress, well-hydrated, well nourished. Skin: Color normal, No edema Neck: Supple, no adenopathy; thyroid symmetric, normal size, no bruits ASSESSMENT/PLAN: 1. Pelvic pain in female - ICD9: 625.9, ICD10: R10.2 (primary diagnosis) - US FEMALE PELVIS TRANSVAG - Was scheduled for annual exam today but declined at this time due to daughter being present. Reviewed recommendation for US and vaginal testing prior to starting control due to her pain. She is agreeable and will return for visit. 2. control counseling - ICD9: V25.09, ICD10: Z30.09 -Would like Depo, will start after exam and results. Silvio Canada APRN.CNM documented in this encounter [facility] [place] Discharge instructions 02-21-2023 Note Date & Type Note Facility 02-21-2023 Hospital Discharg e instructions Patient Education 02/21/2023 10:25:49 Pharyngitis, Report Pending Pharyngitis (Sore Throat), Report Pending Pharyngitis (sore throat) is often due to a virus. It can also be caused by streptococcus (strep), bacteria. This is often called strep throat. Both viral and strep infections can cause throat pain that is worse when swallowing, aching all over, headache, and fever. Both types of infections are contagious. They may be spread by coughing, kissing, or touching others after touching your mouth or nose. A test has been done to find out if you or your child have strep throat. Call this facility or your healthcare provider if you were not given your test results. If the test is positive for strep infection, you will need to take antibiotic medicines. A prescription can be called into your pharmacy at that time. If the test is negative, you probably have a viral pharyngitis. This does not need to be treated with antibiotics. Until you receive the results of the strep test, you should stay home from work. If your child is being tested, he or she should stay home from school. Home care Rest at home. Drink plenty of fluids so you won't get dehydrated. If the test is positive for strep, you or your child should not go to work or school for the first 2 days of taking the antibiotics. After this time, you or your child will not be contagious. You or your child can then return to work or school when feeling better. Use the antibiotic medicine for the full 10 days. Do not stop the medicine even if you or your child feel better. This is very important to make sure the infection is fully treated. It is also important to prevent medicine-resistant germs from growing. If you or your child were given an antibiotic shot, no more antibiotics are needed. Use throat lozenges or numbing throat sprays to help reduce pain. Gargling with warm salt water will also help reduce throat pain. Dissolve 1/2 teaspoon of salt in 1 glass of warm water. Children can sip on juice or a popsicle. Children 5 years and older can also suck on a lollipop or hard candy. Don't eat salty or spicy foods or give them to your child. These can irritate the throat. Other medicine for a child: You can give your child acetaminophen for fever, fussiness, or discomfort. In babies over 6 months of age, you may use ibuprofen instead of acetaminophen. If your child has chronic liver or kidney disease or ever had a stomach ulcer or GI bleeding, talk with your child s healthcare provider before giving these medicines. Aspirin should never be used by any child under 18 years of age who has a fever. It may cause severe liver damage. Other medicine for an adult: You may use acetaminophen or ibuprofen to control pain or fever, unless another medicine was prescribed for this. If you have chronic liver or kidney disease or ever had a stomach ulcer or GI bleeding, talk with your healthcare provider before using these medicines. Follow-up care Follow up with your healthcare provider or our staff if you or your child don't get better over the next week. When to seek medical advice Call your healthcare provider right away if any of these occur: Fever as directed by your healthcare provider. For children, seek care if: oYour child is of any age and has repeated fevers above 104 F (40 C). oYour child is younger than 2 years of age and has a fever of 100.4 F (38 C) for more than 1 day. oYour child is 2 years old or older and has a fever of 100.4 F (38 C) for more than 3 days. New or worsening ear pain, sinus pain, or headache Painful lumps in the back of neck Stiff neck Lymph nodes are getting larger Can t swallow liquids, a lot of drooling, or can t open mouth wide due to throat pain Signs of dehydration, such as very dark urine or no urine, sunken eyes, dizziness Trouble breathing or noisy breathing Muffled voice New rash Other symptoms getting worse Prevention Here are steps you can take to help prevent an infection: Keep good hand washing habits. Don t have close contact with people who have sore throats, colds, or other upper respiratory infections. Don t smoke, and stay away from secondhand smoke. Stay up to date with of your vaccines. 9633-6121 [employer]. [address] [place] [address]. All rights reserved. This information is not intended as a substitute for professional medical care. Always follow your healthcare professional's instructions. Follow Up Care 02/21/2023 09:23:35 With:PHYSICIAN, NONE Address:Unknown When:2-4 days [facility] Clinical Note 02-21-2023 Note Date & Type Note Facility 02-21-2023 Note Discharge Instructions Thank you for allowing [facility] to assist you with your healthcare needs. The following is important discharge information regarding your hospital visit. Diagnosis from Today's Visit Pharyngitis, Pharyngitis Sore throat - Adult What to Do Next Instructions from Your Care Team Discharge Return to Work, School, or Sports (Return to Work, School, or Sports) - Ordered -- 02/21/23, 02/23/23, May return to: work, 02/21/23 10:25:00 EDT Post Acute Orders No qualifying data available. You Need to Schedule the Following Appointments Follow Up with PHYSICIAN, NONE When Within 2-4 days Allergies NKA Medications Please ask your primary doctor or pharmacist before taking any other medication not listed, including over the counter drugs, herbal medications, vitamins and or supplements as they may interact with your home medications. What How Much When Why Instructions Last Dose New amoxicillin (amoxicillin 500 mg oral capsule) 1 cap by mouth Three (3) times a day Duration: 10 Days Printed Prescription New traMADol (Ultram 50 mg oral tablet) 1 tab(s) by mouth Every 12 hours Pharyngitis Duration: 3 Days Printed Prescription Changed predniSONE (predniSONE 20 mg oral tablet) 2 tab(s) by mouth Every day Exudative pharyngitis Duration: 5 Days Changed predniSONE (predniSONE 50 mg oral tablet) 1 tab(s) by mouth Every day Duration: 7 Days Printed Prescription Unchanged acetaminophen (acetaminophen 500 mg oral tablet) 2 tab(s) by mouth Three (3) times a day as needed for pain or fever Unchanged acetaminophen-hydrocodone ([place] 325- 5 mg oral tablet) 1 tab(s) by mouth Every 6 hours as needed for as needed for pain Exudative pharyngitis Duration: 3 Days Unchanged medroxyPROGESTERone (medroxyPROGESTERone 150 mg/ mL intramuscular suspension) 1 Milliliter Intramuscular Every 3 months Please take this list to your next doctor s visit. Bring all medications you take, including over the counter medications, herbals and other supplements with you to your doctor s visit. Patients and families are reminded to discard old lists and to update any records with all medication providers or retail pharmacies. Medication Leaflets amoxicillin (am OX i shay in) What is the most important information I should know about amoxicillin? You should not use this medicine if you are allergic to any penicillin antibiotic. What is amoxicillin? Amoxicillin is a penicillin antibiotic that is used to treat many different types of infection caused by bacteria, such as tonsillitis, bronchitis, pneumonia, and infections of the ear, nose, throat, skin, or urinary tract. Amoxicillin is also sometimes used together with another antibiotic called clarithromycin (Biaxin) to treat stomach ulcers caused by Helicobacter pylori infection. This combination is sometimes used with a stomach acid plastic tile setter called lansoprazole (Prevacid). Amoxicillin may also be used for purposes not listed in this medication guide. What should I discuss with my healthcare provider before taking amoxicillin? You should not use this medicine if you are allergic to any penicillin antibiotic, such as ampicillin, dicloxacillin, oxacillin, penicillin, or ticarcillin. Tell your doctor if you have ever had: kidney disease; mononucleosis (also called 'mono'); diarrhea caused by taking antibiotics; or food or drug allergies (especially to a cephalosporin antibiotic such as Omnicef, Cefzil, Ceftin, Keflex, and others). It is not known whether this medicine will harm an unborn baby. Tell your doctor if you are or plan to become . Amoxicillin can make control pills less effective. Ask your doctor about using a non-hormonal control (condom, diaphragm, cervical cap, or contraceptive sponge) to prevent . It may not be safe to breastfeed while using this medicine. Ask your doctor about any risk. How should I take amoxicillin? Follow all directions on your prescription label and read all medication guides or instruction sheets. Use the medicine exactly as directed. Take this medicine at the same time each day. Some forms of amoxicillin may be taken with or without food. Check your medicine label to see if you should take your amoxicillin with food or not. Shake the oral suspension (liquid) before you measure a dose. Measure liquid medicine with the dosing syringe provided, or use a medicine dose-measuring device (not a kitchen spoon). You may mix the liquid with water, milk, baby formula, fruit juice, or fabiano liu. Drink all of the mixture right away. Do not save for later use. You must chew the chewable tablet before you swallow it. Swallow the regular tablet whole and do not crush, chew, or break it. You will need frequent medical tests. If you are taking amoxicillin with clarithromycin and/or lansoprazole to treat stomach ulcer, use all of your medications as directed. Read the medication guide or patient instructions provided with each medication. Do not change your doses or medication schedule without your doctor's advice. Use this medicine for the full prescribed length of time, even if your symptoms quickly improve. Skipping doses can increase your risk of infection that is resistant to medication. Amoxicillin will not treat a viral infection such as the flu or a common cold. Do not share this medicine with another person, even if they have the same symptoms you have. This medicine can affect the results of certain medical tests. Tell any doctor who treats you that you are using amoxicillin. Store at room temperature away from moisture, heat, and light. You may store liquid amoxicillin in a refrigerator but do not allow it to freeze. Throw away any liquid amoxicillin that is not used within 14 days after it was mixed at the pharmacy. What happens if I miss a dose? Skip the missed dose and use your next dose at the regular time. Do not use two doses at one time. What happens if I overdose? Seek emergency medical attention or call the Poison Help line at . What should I avoid while taking amoxicillin? Antibiotic medicines can cause diarrhea, which may be a sign of a new infection. If you have diarrhea that is watery or bloody, call your doctor before using anti-diarrhea medicine. What are the possible side effects of amoxicillin? Get emergency medical help if you have signs of an allergic reaction (hives, difficult breathing, swelling in your face or throat) or a severe skin reaction (fever, sore throat, burning eyes, skin pain, red or purple skin rash with blistering and peeling). Call your doctor at once if you have: severe stomach pain; or diarrhea that is watery or bloody (even if it occurs months after your last dose). Common side effects may include: nausea, vomiting, diarrhea; or rash. This is not a complete list of side effects and others may occur. Call your doctor for medical advice about side effects. You may report side effects to FDA at 0-210-ASX-4609. What other drugs will affect amoxicillin? Tell your doctor about all your other medicines, especially: any other antibiotics; allopurinol; probenecid; or a blood thinner--warfarin, Coumadin, Jantoven. This list is not complete. Other drugs may affect amoxicillin, including prescription and skdo-uld-xrcuryc medicines, vitamins, and herbal products. Not all possible drug interactions are listed here. Where can I get more information? Your pharmacist can provide more information about amoxicillin. Remember, keep this and all other medicines out of the reach of children, never share your medicines with others, and use this medication only for the indication prescribed. Every effort has been made to ensure that the information provided by [employer]') is accurate, up-to-date, and complete, but no guarantee is made to that effect. Drug information contained herein may be time sensitive. [employer] information has been compiled for use by healthcare practitioners and consumers in the [place] and therefore [employer] does not warrant that uses outside of the [place] are appropriate, unless specifically indicated otherwise. [employer] drug information does not endorse drugs, diagnose patients or recommend therapy. [employer] drug information is an informational resource designed to assist licensed healthcare practitioners in caring for their patients and/or to serve consumers viewing this service as a supplement to, and not a substitute for, the expertise, skill, knowledge and judgment of healthcare practitioners. The absence of a warning for a given drug or drug combination in no way should be construed to indicate that the drug or drug combination is safe, effective or appropriate for any given patient. [employer] does not assume any responsibility for any aspect of healthcare administered with the aid of information [employer] provides. The information contained herein is not intended to cover all possible uses, directions, precautions, warnings, drug interactions, allergic reactions, or adverse effects. If you have questions about the drugs you are taking, check with your doctor, nurse or pharmacist. Copyright 0179-4335 [employer]. Version: 10.. Revision Date: 05/26/2019. acetaminophen and hydrocodone (a SEET a MIN oh fen and cesar dronancy KOE done) Lortab Elixir, Verdrocet What is the most important information I should know about acetaminophen and hydrocodone? MISUSE OF OPIOID MEDICINE CAN CAUSE ADDICTION, OVERDOSE, OR . Keep the medication in a place where others cannot get to it. Taking opioid medicine during may cause life-threatening withdrawal symptoms in the . Fatal side effects can occur if you use opioid medicine with alcohol, or with other drugs that cause drowsiness or slow your breathing. Stop taking this medicine and call your doctor right away if you have skin redness or a rash that spreads and causes blistering and peeling. What is acetaminophen and hydrocodone? Acetaminophen and hydrocodone is a combination medicine used to relieve moderate to severe pain. Acetaminophen and hydrocodone contains an opioid medicine, and may be habit-forming. Acetaminophen and hydrocodone may also be used for purposes not listed in this medication guide. What should I discuss with my healthcare provider before taking acetaminophen and hydrocodone? You should not use this medicine if you are allergic to acetaminophen or hydrocodone, or if you have: severe asthma or breathing problems; or a blockage in your stomach or intestines. Tell your doctor if you have ever had: breathing problems, sleep apnea (breathing stops during sleep); liver disease; a drug or alcohol addiction; kidney disease; a head injury or seizures; urination problems; or problems with your thyroid, pancreas, or gallbladder. If you use opioid medicine while you are , your baby could become dependent on the drug. This can cause life-threatening withdrawal symptoms in the baby after it is born. Babies born dependent on opioids may need medical treatment for several weeks. Ask a doctor before using opioid medicine if you are . Tell your doctor if you notice severe drowsiness or slow breathing in the nursing baby. How should I take acetaminophen and hydrocodone? Follow all directions on your prescription label. Never take this medicine in larger amounts, or for longer than prescribed. An overdose can damage your liver or cause . Tell your doctor if you feel an increased urge to use more of this medicine. Never share this medicine with another person, especially someone with a history of drug abuse or addiction. MISUSE CAN CAUSE ADDICTION, OVERDOSE, OR . Keep the medicine in a place where others cannot get to it. Selling or giving away this medicine is against the law. Measure liquid medicine carefully. Use the dosing syringe provided, or use a medicine dose-measuring device (not a kitchen spoon). If you need surgery or medical tests, tell the doctor ahead of time that you are using this medicine. You should not stop using this medicine suddenly. Follow your doctor's instructions about tapering your dose. Store at room temperature away from moisture and heat. Keep track of your medicine. You should be aware if anyone is using it improperly or without a prescription. Do not keep leftover opioid medication. Just one dose can cause in someone using this medicine accidentally or improperly. Ask your pharmacist where to locate a drug take-back disposal program. If there is no take-back program, flush the unused medicine down the toilet. What happens if I miss a dose? Since this medicine is used for pain, you are not likely to miss a dose. Skip any missed dose if it is almost time for your next dose. Do not use two doses at one time. What happens if I overdose? Seek emergency medical attention or call the Poison Help line at . An overdose of this medicine can be fatal, especially in a child or other person using the medicine without a prescription. Overdose symptoms may include nausea, vomiting, sweating, severe drowsiness, pinpoint pupils, slow breathing, or no breathing. Your doctor may recommend you get naloxone (a medicine to reverse an opioid overdose) and keep it with you at all times. A person caring for you can give the naloxone if you stop breathing or don't wake up. Your caregiver must still get emergency medical help and may need to perform CPR (cardiopulmonary resuscitation) on you while waiting for help to arrive. Anyone can buy naloxone from a pharmacy or local health department. Make sure any person caring for you knows where you keep naloxone and how to use it. What should I avoid while taking acetaminophen and hydrocodone? Avoid driving or operating machinery until you know how this medicine will affect you. Dizziness or drowsiness can cause falls, accidents, or severe injuries. Do not drink alcohol. Dangerous side effects or could occur. Ask a doctor or pharmacist before using any other medicine that may contain acetaminophen (sometimes abbreviated as APAP). Taking certain medications together can lead to a fatal overdose. What are the possible side effects of acetaminophen and hydrocodone? Get emergency medical help if you have signs of an allergic reaction: hives; difficulty breathing; swelling of your face, lips, tongue, or throat. Opioid medicine can slow or stop your breathing, and may occur. A person caring for you should give naloxone and/or seek emergency medical attention if you have slow breathing with long pauses, blue colored lips, or if you are hard to wake up. In rare cases, acetaminophen may cause a severe skin reaction that can be fatal. This could occur even if you have taken acetaminophen in the past and had no reaction. Stop taking this medicine and call your doctor right away if you have skin redness or a rash that spreads and causes blistering and peeling. Call your doctor at once if you have: noisy breathing, sighing, shallow breathing, breathing that stops; a light-headed feeling, like you might pass out; liver problems--nausea, upper stomach pain, tiredness, loss of appetite, dark urine, aron-colored stools, jaundice (yellowing of the skin or eyes); low cortisol levels-- nausea, vomiting, loss of appetite, dizziness, worsening tiredness or weakness; o high levels of serotonin in the body--agitation, hallucinations, fever, sweating, shivering, fast heart rate, muscle stiffness, twitching, loss of coordination, nausea, vomiting, diarrhea. Serious breathing problems may be more likely in older adults and in those who are debilitated or have wasting syndrome or chronic breathing disorders. Common side effects include: dizziness, drowsiness, feeling tired; nausea, vomiting, stomach pain; constipation; or headache. This is not a complete list of side effects and others may occur. Call your doctor for medical advice about side effects. You may report side effects to FDA at 8-939-CDF-8622. What other drugs will affect acetaminophen and hydrocodone? You may have breathing problems or withdrawal symptoms if you start or stop taking certain other medicines. Tell your doctor if you also use an antibiotic, antifungal medication, heart or blood pressure medication, seizure medication, or medicine to treat HIV or hepatitis C. Opioid medication can interact with many other drugs and cause dangerous side effects or . Be sure your doctor knows if you also use: cold or allergy medicines, bronchodilator asthma/COPD medication, or a diuretic ('water pill'); medicines for motion sickness, irritable bowel syndrome, or overactive bladder; other opioids--opioid pain medicine or prescription cough medicine; a sedative like Valium--diazepam, alprazolam, lorazepam, Xanax, Klonopin, Versed, and others; drugs that make you sleepy or slow your breathing--a sleeping pill, muscle relaxer, medicine to treat mood disorders or mental illness; drugs that affect serotonin levels in your body--a stimulant, or medicine for depression, Parkinson's disease, migraine headaches, serious infections, or nausea and vomiting. This list is not complete. Other drugs may affect acetaminophen and hydrocodone, including prescription and mfwq-yuz-sfgcloo medicines, vitamins, and herbal products. Not all possible interactions are listed here. Where can I get more information? Your doctor or pharmacist can provide more information about acetaminophen and hydrocodone. Remember, keep this and all other medicines out of the reach of children, never share your medicines with others, and use this medication only for the indication prescribed. Every effort has been made to ensure that the information provided by [employer] ('[employer]') is accurate, up-to-date, and complete, but no guarantee is made to that effect. Drug information contained herein may be time sensitive. [employer] information has been compiled for use by healthcare practitioners and consumers in the [place] and therefore [employer] does not warrant that uses outside of the [place] are appropriate, unless specifically indicated otherwise. [employer] drug information does not endorse drugs, diagnose patients or recommend therapy. [employer] drug information is an informational resource designed to assist licensed healthcare practitioners in caring for their patients and/or to serve consumers viewing this service as a supplement to, and not a substitute for, the expertise, skill, knowledge and judgment of healthcare practitioners. The absence of a warning for a given drug or drug combination in no way should be construed to indicate that the drug or drug combination is safe, effective or appropriate for any given patient. [employer] does not assume any responsibility for any aspect of healthcare administered with the aid of information [employer] provides. The information contained herein is not intended to cover all possible uses, directions, precautions, warnings, drug interactions, allergic reactions, or adverse effects. If you have questions about the drugs you are taking, check with your doctor, nurse or pharmacist. Copyright 8316-9158 [employer]. Version: 19.. Revision Date: 02/18/2023. Education Materials Pharyngitis (Sore Throat), Report Pending Pharyngitis (sore throat) is often due to a virus. It can also be caused by streptococcus (strep), bacteria. This is often called strep throat. Both viral and strep infections can cause throat pain that is worse when swallowing, aching all over, headache, and fever. Both types of infections are contagious. They may be spread by coughing, kissing, or touching others after touching your mouth or nose. A test has been done to find out if you or your child have strep throat. Call this facility or your healthcare provider if you were not given your test results. If the test is positive for strep infection, you will need to take antibiotic medicines. A prescription can be called into your pharmacy at that time. If the test is negative, you probably have a viral pharyngitis. This does not need to be treated with antibiotics. Until you receive the results of the strep test, you should stay home from work. If your child is being tested, he or she should stay home from school. Home care Rest at home. Drink plenty of fluids so you won't get dehydrated. If the test is positive for strep, you or your child should not go to work or school for the first 2 days of taking the antibiotics. After this time, you or your child will not be contagious. You or your child can then return to work or school when feeling better. Use the antibiotic medicine for the full 10 days. Do not stop the medicine even if you or your child feel better. This is very important to make sure the infection is fully treated. It is also important to prevent medicine-resistant germs from growing. If you or your child were given an antibiotic shot, no more antibiotics are needed. Use throat lozenges or numbing throat sprays to help reduce pain. Gargling with warm salt water will also help reduce throat pain. Dissolve 1/2 teaspoon of salt in 1 glass of warm water. Children can sip on juice or a popsicle. Children 5 years and older can also suck on a lollipop or hard candy. Don't eat salty or spicy foods or give them to your child. These can irritate the throat. Other medicine for a child: You can give your child acetaminophen for fever, fussiness, or discomfort. In babies over 6 months of age, you may use ibuprofen instead of acetaminophen. If your child has chronic liver or kidney disease or ever had a stomach ulcer or GI bleeding, talk with your child s healthcare provider before giving these medicines. Aspirin should never be used by any child under 18 years of age who has a fever. It may cause severe liver damage. Other medicine for an adult: You may use acetaminophen or ibuprofen to control pain or fever, unless another medicine was prescribed for this. If you have chronic liver or kidney disease or ever had a stomach ulcer or GI bleeding, talk with your healthcare provider before using these medicines. Follow-up care Follow up with your healthcare provider or our staff if you or your child don't get better over the next week. When to seek medical advice Call your healthcare provider right away if any of these occur: Fever as directed by your healthcare provider. For children, seek care if: oYour child is of any age and has repeated fevers above 104 F (40 C). oYour child is younger than 2 years of age and has a fever of 100.4 F (38 C) for more than 1 day. oYour child is 2 years old or older and has a fever of 100.4 F (38 C) for more than 3 days. New or worsening ear pain, sinus pain, or headache Painful lumps in the back of neck Stiff neck Lymph nodes are getting larger Can t swallow liquids, a lot of drooling, or can t open mouth wide due to throat pain Signs of dehydration, such as very dark urine or no urine, sunken eyes, dizziness Trouble breathing or noisy breathing Muffled voice New rash Other symptoms getting worse Prevention Here are steps you can take to help prevent an infection: Keep good hand washing habits. Don t have close contact with people who have sore throats, colds, or other upper respiratory infections. Don t smoke, and stay away from secondhand smoke. Stay up to date with of your vaccines. 8744-6592 [employer]. [address] [place] [address], [place] [address]. All rights reserved. This information is not intended as a substitute for professional medical care. Always follow your healthcare professional's instructions. Additional Information VACCINATE! IT SAVES LIVES! Members of the community who have not yet received the COVID-19 vaccine and would like to receive it can visit one of [facility] vaccine clinics. There are many vaccine clinic locations within the [facility]. For locations and available times, please visit www.[email or web address].[email or web address]/. It is important to note that some COVID mobile vaccine clinics are held outdoors and may be canceled in rainy or stormy conditions. To learn more about pediatric vaccinations (ages 5-11), we invite you to visit the [employer] webpage. [email or web address].org/pages/[email or web address]-Evced-Krswvyqvnif-Ldpbssicht-Edsqc-Erl stions.html To learn more about the COVID-19 vaccine, we invite you to visit the CDC website for a list of frequently asked questions. https://www.cdc.gov/coronavirus/2019-nco v/vaccines/faq.html [facility] Patient Portal Access Instructions: Stay connected with your healthcare team and access your personal medical information anytime with the [facility] Patient Portal. If you would like a full copy of your medical records please contact the [facility] Medical Records Department Saturday through Saturday between 8a.m. and 4:30p.m. Please follow the directions below to access the portal: 1.Access the email account you provided upon registration to the hospital.2.Look for an invitation email from [facility].3.Open the email and access the invitation link: Accept Invitation to [facility]4.Fill in the required li to create your account. Sign into [email or web address] with your username and password that you created in the above steps to stay up to date. You can then view a summary of results, a summary of your visits, and the ability to download your summaries to your computer or send the information securely to a physician. Remember that your healthcare information is confidential, so carefully consider who you will allow to register on the [facility] Patient Portal for access to your information. You can also access the [facility] Patient Portal on the [employer]. Simply click on Health Records under Health Data and then click on the [employer] logo. HOW TO SAFELY DISPOSE OF PRESCRIPTION MEDICATIONS Please use one of the following methods to safely dispose of your unused medications. 1.Use a drug disposal kit: the drug disposal pouch allows you to safely discard your old and unused drugs. Ask your nurse to give you one when you are discharged.2.Visit a local take-back location: Many local pharmacies and police departments have programs that collect old and unwanted prescription drugs. Call your local pharmacy or go to http://FarmDrop.IDEA SPHERE/4W9Of2c to find one close to you.3.Make use of household items: Use cat litter or old coffee grounds to dispose medications if other options are not available. Mix your drugs with these household products, seal them in an airtight container and throw it into the garbage. Call [facility]: [phone] to be sure your drugs can be disposed of in this way. Some medicines may require a different approach.4.Never flush your medications down the toilet. IF YOU HAVE BEEN PRESCRIBED AN OPIOIDS FOR PAIN If you have been prescribed an opioid (such as hydrocodone, oxycodone or morphine), it is critical to understand the possible side effects and risks of opioid pain medications. Even when taken as directed, opioids can have several side effects including: Tolerance, meaning you might need to take more of a medication for the same pain relief. Nausea, vomiting and/or constipation. Sleepiness, dizziness, dry mouth, confusion, depression or itching. Physical dependence, meaning you have withdrawal symptoms when a medication is stopped ? this can develop within a few days. KNOW YOUR RESPONSIBILITIES It is important to know exactly how much and how often to take the opioid pain medications you are prescribed. Never take opioids in higher amounts or more often than prescribed. Do not combine opioids with alcohol or other drugs that cause drowsiness, such as benzodiazepines, also known as benzos, including diazepam and alprazolam, muscle relaxants or sleep aids. Never sell or share prescription opioids. This is illegal. Store opioids in a secure place and out of reach of others (including children, family, friends and visitors). The last page(s) of this document has been signed and retained as a CHART COPY Signatures Patient Education Materials Pharyngitis, Report Pending Medication Leaflets amoxicillin, acetaminophen and hydrocodone My discharge plan and instructions have been reviewed and explained to me and I,MARY BETH VIRGILIO Cline understand my current condition and have read and understand these discharge instructions. I have received a written copy of the plan/instructions. If I have questions, I am aware that I should contact my doctor. Patient/Button Reclaimer Signature: Date/Time: Relationship to Patient: Witness Name/Signature: ____ Date/Time: [facility] Evaluation + Plan note Note Date & Type Note Facility Evaluation + Plan note No data available for this section [facility] Evaluation note Note Date & Type Note Facility Evaluation note Diagnosis Pelvic pain in female- Primary Unspecified symptom associated with female genital organs control counseling General counseling for initiation of other contraceptive measures documented in this encounter [facility] Reason for referral (narrative) Diagnostic Procedure Only (Routine) - Pending Review Note Date & Type Note Facility Reason for referral (narrati ve) Specialty Diagnoses / Procedures Referred By Re crowley Referred To Contact [facility] Diagnoses Pelvic pain in female Procedures US FEMALE PELVIS TRANSVAG US TRANSVAGINAL Silvio Canada APRN.CNM [address] [place] [address] [place] [id number] Referral ID Status Reason Start Date Expiration Date Visits Requested Visits Authorized [id number] Pending Review Auto-Generat ed Referral 10/15/2023 11/13/2024 1 1 [facility] Summary Purpose Family History No Family History Records Found Advance Directives No Advanced Directives Records FoundNo Advanced Directives Records Found Additional Source Comments Patient Care team informatio n (unrecognized section and content) 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 Start Date End Date Idris Russell MD [address] [place] [id number] PCP - General Internal Medicine 08/11/15 INFORMATION SOURCE (unrecogn ized section and content) DATE CREATED AUTHOR 02/28/2023 [facility] ([place]) DATE CREATED AUTHOR AUTHOR'S ORGANIZ ATION 10/20/2023 [facility] Source Comments (unrecognize d section and content) In the event this informatio n is protected by the Federal Confidentiality of Alcohol and Drug Abuse Patient Records regulations: The Federal rules restrict any use of the information to criminally investigate or prosecute any alcohol or drug abuse patient.[facility] FOR RECORDS PERTAINING TO PATIENTS WHO ARE OR HAVE BEEN ENROLLED IN A CHEMICAL DEPENDENCY/SUBSTANCEABUSE PROGRAM, SOME INFORMATION MAY BE OMITTED. This clinical summary was aggregated from multiple sources. Caution should be exercised in using it in the provision of clinical care. This summary normalizes information from multiple sources, and as a consequence, information in this document may materially change the coding, format and clinical context of patient data. In addition, data may be omitted in some cases. CLINICAL DECISIONS SHOULD BE BASED ON THE PRIMARY CLINICAL RECORDS. [facility]. provides no warranty or guarantee of the accuracy or completeness of information in this document.
== END 2024-04-21 16:36 | disposition home or self-care (01) ==
PROVIDERS: Emergency Provider Emergency Medicine; Visit Provider Emergency Medicine
DX: K12.30 Oral mucositis (ulcerative), unspecified (principal); K02.9 Dental caries, unspecified; F17.210 Nicotine dependence, cigarettes, uncomplicated
CPT/HCPCS: 99283